=== PATIENT | female | born 1980 | race Caucasian/White ===

== ENCOUNTER → 2016-09-11 | Outpatient (CLI) | payer MEDICARE, OTHER ==
--- NOTE | 2016-09-11 15:26 | RAD ---
PROCEDURE MRI lumbar spine without contrast HISTORY Chronic back pain, lupus TECHNIQUE Sagittal and axial T1 and T2 and sagittal STIR images were acquired of the lumbar spine. Contrast: None COMPARISON None FINDINGS Lumbar vertebral body stature and AP alignment are adequate. There is mild narrowing of the L4-5 intervertebral disc space. There is no significant marrow edema. There is also mild degenerative disc disease of the visualized T11-12 level. Conus terminates at T12-L1. There are anterior annular tears L2-3 to L4-5. 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 L1-L2: Spinal canal and neural foramina are adequate. L2-3: There is mild facet hypertrophic change. Spinal canal and neural foramina are adequate. L3-4: Spinal canal and neural foramina are adequate. L4-L5: There is mild facet degenerative change. There is shallow protrusion eccentric to the left lateral recess, mild indentation upon the ventral thecal sac without significant impingement of the descending left L5 nerve root. There is mild narrowing of the inferior left neural foramen, shallow protrusion near the undersurface of the exiting left L4 nerve root in the neural foramen and proximal extraforaminal region. L5-S1: There is very shallow protrusion in the far right lateral recess and inferior right neural foramen with associated annular tear. Spinal canal is adequate. Neural foramina are adequate. IMPRESSION 1. There is no significant lumbar spinal stenosis. There are shallow protrusions at L4-5 and L5-S1 as described. There is minimal narrowing of the left L4-5 neural foramen. 2. There is mild degenerative disc disease T11-12 and L4-5. Electronically signed by: Eulalio Robbins MD (Sep 11, 2016 15:25:12)
== END | disposition home or self-care (01) ==
LOC: MRI 14:33
PROVIDERS: ATTEND General Practice
DX: M48.06 Spinal stenosis, lumbar region (principal); G89.4 Chronic pain syndrome; M51.34 Other intervertebral disc degeneration, thoracic region; M51.36 Other intervertebral disc degeneration, lumbar region; M51.26 Other intervertebral disc displacement, lumbar region
CPT/HCPCS: 72148